=== PATIENT | female | born 1990 ===

== ENCOUNTER 2020-07-26 17:52 | Emergency (ER) | payer OTHER ==
[~2020-07-26] VITALS: Ht 165.1 cm; Wt 81.6 kg
[2020-07-26] MEDS ORDERED: METHOCARBAMOL 500 MG TAB PO ONE (21:15)
[2020-07-26] MEDS ORDERED: ACETAMINOPHEN 500 MG TAB PO ONE (21:15)
[2020-07-26 21:55] VITALS: BP 121/69
[2020-07-26 22:44] LABS: Urine Amorphous Crystal FEW /hpf (None Seen); Urine Bacteria MOD /hpf (None Seen); Urine Blood 3+ /uL (Negative); Urine Mucus FEW (None Seen); Urine Specific Gravity 1.019 (1.001-1.035); Urine WBC 58 /hpf (0 - 5); Urine WBC Clumps PRESENT /hpf (None Seen)
== END 2020-07-26 22:19 | disposition home or self-care (01) ==
LOC: ER 17:52 → EDBD 17:52 → ER 22:19
DX: M62.838 Other muscle spasm (principal); M54.5 Low back pain; V49.9XXA Car occupant (driver) (passenger) injured in unspecified traffic accident, initial encounter; Y93.89 Activity, other specified; Y92.89 Other specified places as the place of occurrence of the external cause; Y99.8 Other external cause status
CPT/HCPCS: 70450; 72040; 73030; 74176; 81001; 81025